=== PATIENT | female | born 1985 | race Caucasian/White ===

== ENCOUNTER 2019-09-05 10:24 | Emergency (ER) | payer BC ==
[~2019-09-05] VITALS: Ht 162.6 cm; Wt 70.3 kg
[2019-09-05 10:30] VITALS: BP 141/95
[2019-09-05] MEDS ORDERED: CLONAZEPAM 0.50.5 M1 PO (10:36)
[2019-09-05] MEDS ORDERED: ADDERALL 20 MG20 MG PO (10:36)
[2019-09-05] MEDS ORDERED: KEFLEX500 M1 PO (10:48)
== END 2019-09-05 11:15 | disposition home or self-care (01) ==
LOC: M.ERS 10:24
DX: S61.211A Laceration without foreign body of left index finger without damage to nail, initial encounter (principal); F41.9 Anxiety disorder, unspecified; F90.9 Attention-deficit hyperactivity disorder, unspecified type; W27.0XXA Contact with workbench tool, initial encounter; Y93.89 Activity, other specified; Y92.89 Other specified places as the place of occurrence of the external cause; Y99.8 Other external cause status